=== PATIENT | female | born 1970 | race Caucasian/White ===

== ENCOUNTER 2016-09-14 06:09 | Inpatient (IN) ==
[2016-09-14] MEDS ORDERED: Albuterol 2.5 MG/3 ML NEBULIZER IH ONE (06:48)
--- NOTE | 2016-09-14 07:00 | Anesthesia Evaluation PreOp ---
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 Any Significant HX Other Medical History: Other (Obese, Uterine and Colon cancer with metastasis to lung) Anesthesia History: No Prior Anesthetic Complications (Multiple surgeries including T&A, Maria E, ALVARO, CTR, Colectomy, Meniscus repair, and Ulnar nerve transposition.), Past Anesthesia : No Alcohol Use: none Drug use: none Medications and Allergies Albuterol Sulfate [Albuterol Inhaler] 2 puff IH Q4H PRN 06/08/16 [History] Oxycodone HCl/Acetaminophen [Percocet 10-325 mg Tablet] 1 each PO Q6H PRN #90 tablet 08/20/16 [Rx] Allergies codeine Allergy (Verified 08/16/16 10:32) Anaphylaxis STATES TO TAKE THAT OFF LIST SHE CAN TAKE THAT ibuprofen Allergy (Verified 08/16/16 10:32) Anaphylaxis Penicillins Allergy (Verified 08/16/16 10:32) Anaphylaxis tramadol Allergy (Verified 08/16/16 10:32) Anaphylaxis metronidazole [From Flagyl] Adverse Reaction (Verified 08/16/16 10:32) Vomiting - Meds/Allergy Pre-op Review Medications Reviewed: Yes Allergies Reviewed: Yes (Patitent does not report anaphylaxsis to PCN, gets sick ) Anesthesia Results - Labs Laboratory Tests 09/13/16 09/13/16 17:56 17:56 Hgb 14.2 Hct 42.8 Plt Count 181 Sodium 143 Potassium 4.4 BUN 10 Creatinine 0.81 - Imaging EKG: report reviewed Chest x-ray: report reviewed Anesthesia Exam Selected Entries 09/14/16 06:43 Temperature 98.2 F Pulse Rate 78 Respiratory Rate 18 Blood Pressure 127/78 O2 Sat by Pulse Oximetry 99 Height: 64in Weight: 297lbs NPO (# of Hours): 8 Pain Scale: 0 Pain Scale Used: Numeric (1 - 10) - HEENT Pupil (Motor): EOMI Mallampati: IV Teeth: Normal Oral Opening: Less than or equal to 3 - 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 No epidural due to size. Questions answered and agrees to proceed.)
[2016-09-14] MEDS ORDERED: CeFAZolin Pre 2,000 MG/100 ML 2,000 MG/100 ML BAG IVPB ONE (07:01)
[2016-09-14] MEDS ORDERED: Dexamethasone 4 MG/ML VIAL ONE (07:23)
[2016-09-14] MEDS ORDERED: *HR* Phenylephrine 10 MG/ML VIAL ONE (07:23)
[2016-09-14] MEDS ORDERED: Ondansetron 4 MG/2 ML VIAL ONE (07:23)
[2016-09-14] MEDS ORDERED: *HR* Rocuronium Bromide 50 MG/5 ML VIAL ONE ×2 (07:23→08:44)
[2016-09-14] MEDS ORDERED: *HR* FentaNYL (PF) 250 MCG/5 ML VIAL ONE (07:24)
[2016-09-14] MEDS ORDERED: *HR* Midazolam HCl 5 MG/5 ML VIAL IVP ONE (07:25)
[2016-09-14] MEDS ORDERED: *HR* Propofol 200 MG/20 ML VIAL IVP ONE (07:25)
--- NOTE | 2016-09-14 07:25 | History & Physical Report ---
Date of Encounter: 09/14/16 Time of Encounter: 07:24 24 Hour HP Update - Instructions Instructions: If the History and Physical is less than 30 days old and was completed prior to A.M. admission and or procedure and has NOT been updated on calendar day of procedure please complete this update prior to performing procedure. - Update Patient reports changes in Medical Condition: No Changes in assessment/condition: No Changes in Medication: No Preop tests/diagnostics Reviewed: Yes Pre-Op MRSA Screen: Negative Surgery Remains Indicated: Yes Consent for Planned Operative Procedure(s) Verified: Yes - Pre-Operative Checklist Preoperative Checklist Indicated: Yes Prophylactic Antibiotic Ordered: Yes Home Medications Include Beta Mina: No Beta Mina Taken Today (Day of Surgery): No Beta Mina Taken Yesterday (Day Prior to Surgery): No Is VTE Prophylaxis Indicated?: Yes
[2016-09-14] MEDS ORDERED: Heparin 1,000 UNITS/500 mL NS 500 ML ONE (07:36)
[2016-09-14] MEDS ORDERED: CeFAZolin Pre 3,000 MG/100 ML 3,000 MG/100 ML BAG IVPB ONE (07:39)
[2016-09-14] MEDS: Ringers Solution, Lactated 1,000 ML IVC SCH ×2 (07:55→09:31)
[2016-09-14] MEDS ORDERED: *HR* Metoprolol 5 MG/5 ML VIAL IVP ONE (08:36)
[2016-09-14] MEDS ORDERED: *HR* Morphine 10 MG/ML VIAL ONE (08:40)
--- NOTE | 2016-09-14 10:22 | Operative Note ---
Date of procedure: 09/14/16 Procedure in Detail: Preoperative diagnosis. Metastatic uterine cancer to the right lower lobe of the lung. Postoperative diagnosis. Same. Procedure. Right posterolateral thoracotomy with right lower lobectomy. Surgeon. Dr. Larry Nova. Asst. Winston Akins. Anesthesia. Dr. Chip Bryan. Patient is a young white female who has a history of uterine cancer and colon cancer. She presented with a lung mass in her right lower lobe. Needle biopsy was consistent with metastatic uterine cancer and she was referred for surgery. She states that she has taken Keflex before without difficulty and was given preoperative Ancef without difficulty. She underwent general anesthetic and was prepped and draped in standard fashion. A standard right posterolateral thoracotomy was performed. Serratus anterior and latissimus dorsi muscles were divided with the Bovie electrocoagulation. The fifth intercostal space was selected and intercostal musculature was bovied off the top of the sixth rib. The lung was deflated and the pleural space was entered. The patient had a palpable mass in her right lower lobe that was too central and large for a wedge resection. Dissection went down into the fissure. The pulmonary artery branch to the right lower lobe was isolated. Approximately was ligated with a 0 silk suture and a large metal clip. Distally it was tied off the no silk suture. It was then divided. The inferior pulmonary ligament was dissected. The inferior pulmonary vein was encircled. Distally it was tied off with an 0 silk suture and 0 silk suture ligature. Approximately it was ligated with a TA-30 vascular stapler. It was then divided. The remaining fissure and bronchus was divided using the TA 60 nonvascular stapler. The specimen was removed. The lesion was central and far from the bronchial margin. There were no palpable or obvious lymph nodes in the mediastinum to be biopsied and this was a metastatic lesion. In addition, the mediastinum was negative on PET scan. The lung was reinflated with saline in the chest and no significant air leaks were present. Intercostal blocks were taken with a total of 30 mL of Marcaine without epinephrine for 2 or 3 interspaces above and below the incision. 2 chest tubes were left. A 36 straight to the apex of the chest. A 32 angle along the diaphragm. Intercostal sews were made with #1 Vicryl in [id number] fashion. Serratus anterior and latissimus dorsi muscles were sewn with a #1 Vicryl. Subcutaneous tissues was closed with a 2-0 Vicryl. Skin was closed with a 3-0 Vicryl subcuticular stitch. The patient tolerated the procedure well and was returned intensive care unit in satisfactory and stable condition.
[2016-09-14] MEDS ORDERED: Naloxone 0.4 MG/ML INJ IVP PRN (10:26)
[2016-09-14] MEDS ORDERED: D5% in Water 1,000 ML IV PRN (10:26)
[2016-09-14] MEDS ORDERED: *HR* Dextrose 50 % in Water (Syg) 50 ML SYRINGE IVP PRN (10:26)
[2016-09-14] MEDS ORDERED: *HR* LORazepam 2 MG/ML VIAL IVP PRN (10:26)
[2016-09-14] MEDS ORDERED: Dextrose Gel 15 GM PO PRN ×2 (10:26)
[2016-09-14 10:47] LABS: Basophils % 0.2 %; Eosinophils # 0.1 K/mcL (0.0-0.6); Eosinophils % 0.5 %; Hematocrit 37.8 % (35.3-44.9); Hemoglobin 12.4 g/dL (11.5-15.4); Immature Granulocytes % 0.9 % (0-4); Lymphocytes # 1.7 K/mcL (0.6-4.6); Lymphocytes % 9.6 %; Mean Corpuscular HGB Conc 32.8 g/dL (31.6-35.5); Mean Corpuscular Hemoglobin 27.9 pg (28.0-33.3); Mean Corpuscular Volume 85.1 fL (83.0-100.0); Mean Platelet Volume 8.6 fL (9.4-12.4); Monocytes # 0.6 K/mcL (0.0-1.3); Monocytes % 3.5 %; Neutrophils # 15.4 K/mcL (1.6-8.9); Platelet Count 210 K/mcL (140-400); Red Blood Count 4.44 M/mcL (3.82-4.97); Red Cell Distribution Width 13.4 % (11.5-14.5); Segmented Neutrophils % 85.3 %
[2016-09-14 10:48] LABS: ABG Base Excess -1.1 mEq/L (-2.0 to 3.0); ABG HCO3 25.3 mEQ/L (21-27); ABG Oxygen Saturation 94 % (95-98); ABG PCO2 48 mmHg (35-45); ABG PH 7.33 pH Units (7.32-7.45); ABG PO2 76 mmHg (85-104); ABG TCO2 26.8 mEq/L (20-26)
[2016-09-14 10:49] LABS: Blood Gas FiO2 40 %
[2016-09-14] MEDS: Ketorolac 15 MG/ML VIAL IVP SCH ×3 (10:55→23:36)
[2016-09-14] MEDS: 0.9 % Sodium Chloride 1,000 ML IVC SCH ×3 (10:55→19:21)
[2016-09-14] MEDS: Insulin LISPRO 300 UNITS/3 ML VIAL SQ SCH ×2 (10:55→16:44)
[2016-09-14] MEDS ORDERED: *HR* HYDROmorphone 20 MG/20 ML PCA IVC PRN (10:57)
[2016-09-14] MEDS: *HR* OxyCODONE/APAP 10/325 TABLET PO PRN (11:07)
--- NOTE | 2016-09-14 11:33 | Anesthesia Evaluation Post Op ---
Date of Encounter: 09/14/16 Time of Encounter: 11:30 - Vital Signs Vital Signs: Selected Entries 09/14/16 11:11 Pulse Rate 51 Respiratory Rate 18 Blood Pressure 142/54 O2 Sat by Pulse Oximetry 96 Oxygen Flow Rate (LPM) 5 - Lungs Lungs: Clear Ascult./Percussion - Airway Airway: Non-obstructed - Cardiovascular Regular Rate - Mental Status Mental Status: Alert & Oriented, Answers Appropriately - Pain Pain Scale: 6 Pain Scale used: Numeric (1 - 10) - Nausea Vomiting Nausea Vomiting: Not Present - Hydration Hydration: Ice chips, Coleman catheter (Will remain in ICU tonight. No post anesthesia issues.)
[2016-09-14] MEDS: Albuterol 2.5 MG/3 ML NEBULIZER IH SCH ×4 (11:58→23:29)
[2016-09-14 14:52] LABS: BUN/Creatinine Ratio 14 (6-26); Blood Urea Nitrogen 10 mg/dL (7-20); Calcium 8.5 mg/dL (8.6-10.8); Carbon Dioxide 25 mEq/L (19-29); Chloride 109 mEq/L (98-109); Glucose 140 mg/dL (70-99); Osmolality,Calculated 289 (280-300); Potassium 4.1 mEq/L (3.5-4.5); Sodium 139 mEq/L (136-145); eGFR For African Americans > 60 (> 60); eGFR For Non-African Americans > 60 (> 60)
[2016-09-14] MEDS: ceFAZolin 2,000 MG in D5% in Water 100 ML IVPB SCH (16:25)
[2016-09-14] MEDS ORDERED: Insulin LISPRO 300 UNITS/3 ML VIAL SQ SCH (21:00)
[2016-09-15] MEDS: ceFAZolin 2,000 MG in D5% in Water 100 ML IVPB SCH (00:34)
[2016-09-15] MEDS: Albuterol 2.5 MG/3 ML NEBULIZER IH SCH ×6 (03:17→23:42)
[2016-09-15] MEDS: 0.9 % Sodium Chloride 1,000 ML IVC SCH ×2 (03:51→10:34)
[2016-09-15] MEDS: *HR* OxyCODONE/APAP 10/325 TABLET PO PRN ×4 (04:03→23:05)
[2016-09-15 04:52] LABS: Basophils % 0.1 %; Hematocrit 36.5 % (35.3-44.9); Hemoglobin 11.8 g/dL (11.5-15.4); Immature Granulocytes % 0.5 % (0-4); Lymphocytes # 1.4 K/mcL (0.6-4.6); Lymphocytes % 9.3 %; Mean Corpuscular HGB Conc 32.3 g/dL (31.6-35.5); Mean Corpuscular Hemoglobin 27.8 pg (28.0-33.3); Mean Corpuscular Volume 86.1 fL (83.0-100.0); Monocytes # 1.3 K/mcL (0.0-1.3); Monocytes % 8.8 %; Neutrophils # 12.2 K/mcL (1.6-8.9); Platelet Count 193 K/mcL (140-400); Red Blood Count 4.24 M/mcL (3.82-4.97); Red Cell Distribution Width 13.5 % (11.5-14.5); Segmented Neutrophils % 81.3 %
[2016-09-15 04:58] LABS: ABG Base Excess 0.2 mEq/L (-2.0 to 3.0); ABG Oxygen Saturation 93 % (95-98); ABG PCO2 46 mmHg (35-45); ABG PH 7.36 pH Units (7.32-7.45); ABG PO2 70 mmHg (85-104); ABG TCO2 27.4 mEq/L (20-26); Blood Gas FiO2 24 %
[2016-09-15 05:10] LABS: BUN/Creatinine Ratio 18 (6-26); Blood Urea Nitrogen 14 mg/dL (7-20); Calcium 8.5 mg/dL (8.6-10.8); Carbon Dioxide 22 mEq/L (19-29); Chloride 108 mEq/L (98-109); Glucose 130 mg/dL (70-99); Osmolality,Calculated 288 (280-300); Potassium 4.4 mEq/L (3.5-4.5); Sodium 138 mEq/L (136-145); eGFR For African Americans > 60 (> 60); eGFR For Non-African Americans > 60 (> 60)
[2016-09-15] MEDS: Ketorolac 15 MG/ML VIAL IVP SCH ×4 (06:03→20:48)
--- NOTE | 2016-09-15 08:33 | Cardiothoracic Progress Note ---
Date of Encounter: 09/15/16 Time of Encounter: 08:31 - Assessment and plan (1) Solitary lung nodule Current Visit: No Status: Acute The assessment and plan as outlined above was discussed with the patient and/or family members who expressed understanding and agreement. All questions were answered. The patient is doing well. We will transfer her to the floor. We will discontinue her Coleman catheter and arterial line. - Subjective Interval history: The patient has no complaints. She is starting her diet. Vital Signs, Last 4 Hours Temp Pulse Resp BP Pulse Ox 09/15/16 08:06 103 18 147/73 97 09/15/16 07:57 18 97 09/15/16 07:52 97.9 F 09/15/16 06:00 87 18 101/79 92 L 09/15/16 05:00 85 16 99/77 94 L Oxgyen Flow Rate Oxygen Flow Rate (LPM) 3 Clinical Data, last 8 Hours Output, Chest Tube Drainage 8 Amount [Right Mid-Axillary Chest #2] Output, Chest Tube Drainage 30 Amount [Right Mid-Axillary Chest #1] Weight 09/13/16 09/14/16 09/15/16 23:59 23:59 23:59 Weight 134.263 kg 136.134 kg Lungs are clear to percussion and auscultation. Heart is in a normal sinus rhythm. Her incision is healing well without signs of infection. Chest x-ray reveals no pneumothorax. Chest tube drainage is minimal and there is no air leak. - Labs 09/15/16 04:40 09/15/16 04:40 Lab Results, Last 24 hours 09/14/16 09/14/16 09/15/16 01:40 10:26 04:40 WBC 18.1 H D 15.0 H Hgb 12.4 D 11.8 Hct 37.8 36.5 Plt Count 210 193 Sodium 139 Potassium 4.1 Chloride 109 Carbon Dioxide 25 BUN 10 Creatinine 0.71 Glucose 140 H Calcium 8.5 L 09/15/16 04:40 WBC Hgb Hct Plt Count Sodium 138 Potassium 4.4 Chloride 108 Carbon Dioxide 22 BUN 14 Creatinine 0.78 Glucose 130 H Calcium 8.5 L - VTE Documentation of Mechanical Device: Intermittent pneumatic compression device Consult Discharge Plan - Plan Referrals: Karen Zuluaga MD [Primary Care Provider] -
[2016-09-15] MEDS ORDERED: Furosemide 20 MG/2 ML VIAL IVP ONE (08:35)
[2016-09-15] MEDS: Insulin LISPRO 300 UNITS/3 ML VIAL SQ SCH ×4 (10:34→21:05)
[2016-09-15] MEDS ORDERED: D5% in Water 1,000 ML IV PRN (10:51)
[2016-09-15] MEDS ORDERED: *HR* Dextrose 50 % in Water (Syg) 50 ML SYRINGE IVP PRN (10:51)
[2016-09-15] MEDS ORDERED: *HR* HYDROmorphone 20 MG/20 ML PCA IVC PRN (10:51)
[2016-09-15] MEDS ORDERED: Naloxone 0.4 MG/ML INJ IVP PRN (10:51)
[2016-09-15] MEDS ORDERED: Dextrose Gel 15 GM PO PRN ×2 (10:51)
[2016-09-15] MEDS ORDERED: *HR* LORazepam 2 MG/ML VIAL IVP PRN (10:51)
[2016-09-16] MEDS: 0.9 % Sodium Chloride 1,000 ML IVC SCH ×2 (00:39→08:40)
[2016-09-16] MEDS: Ketorolac 15 MG/ML VIAL IVP SCH ×3 (00:46→12:00)
[2016-09-16] MEDS: Albuterol 2.5 MG/3 ML NEBULIZER IH SCH ×5 (03:45→20:50)
[2016-09-16 04:48] LABS: Basophils % 0.4 %; Eosinophils # 0.3 K/mcL (0.0-0.6); Eosinophils % 2.2 %; Hematocrit 34.8 % (35.3-44.9); Hemoglobin 11.1 g/dL (11.5-15.4); Immature Granulocytes % 0.6 % (0-4); Lymphocytes # 2.4 K/mcL (0.6-4.6); Lymphocytes % 21.8 %; Mean Corpuscular HGB Conc 31.9 g/dL (31.6-35.5); Mean Corpuscular Hemoglobin 27.7 pg (28.0-33.3); Mean Corpuscular Volume 86.8 fL (83.0-100.0); Mean Platelet Volume 8.8 fL (9.4-12.4); Monocytes # 0.9 K/mcL (0.0-1.3); Monocytes % 8.4 %; Neutrophils # 7.5 K/mcL (1.6-8.9); Platelet Count 179 K/mcL (140-400); Red Blood Count 4.01 M/mcL (3.82-4.97); Red Cell Distribution Width 13.6 % (11.5-14.5); Segmented Neutrophils % 66.6 %
[2016-09-16 05:04] LABS: BUN/Creatinine Ratio 16 (6-26); Blood Urea Nitrogen 12 mg/dL (7-20); Calcium 8.6 mg/dL (8.6-10.8); Carbon Dioxide 21 mEq/L (19-29); Chloride 107 mEq/L (98-109); Glucose 96 mg/dL (70-99); Osmolality,Calculated 282 (280-300); Sodium 136 mEq/L (136-145); eGFR For African Americans > 60 (> 60); eGFR For Non-African Americans > 60 (> 60)
[2016-09-16] MEDS: Insulin LISPRO 300 UNITS/3 ML VIAL SQ SCH ×4 (08:39→21:22)
--- NOTE | 2016-09-16 09:04 | Cardiothoracic Progress Note ---
Date of Encounter: 09/16/16 Time of Encounter: 09:05 - Assessment and plan (1) Solitary lung nodule Current Visit: No Status: Acute I took her chest tubes off suction. We will discontinue her BEAM SEALER pump and place her on intermittent IV narcotics. - Subjective Interval history: The patient prefers to discontinue her BEAM SEALER pump and go on intermittent IV narcotics. Vital Signs, Last 4 Hours Temp Pulse Resp BP Pulse Ox 09/16/16 08:12 17 96 09/16/16 07:44 97.9 F 100 18 99/68 95 09/16/16 07:22 98.2 F 102 18 99/68 95 09/16/16 06:00 106 18 108/53 100 Oxgyen Flow Rate Oxygen Flow Rate (LPM) 2 Clinical Data, last 8 Hours Output, Chest Tube Drainage 10 Amount [Right Mid-Axillary Chest #2] Output, Chest Tube Drainage 70 Amount [Right Mid-Axillary Chest #1] Output, Urine Amount 750 Weight 09/14/16 09/15/16 09/16/16 23:59 23:59 23:59 Weight 134.263 kg 136.134 kg 140.9 kg Lungs are clear to percussion and auscultation. Heart is in a normal sinus rhythm. Her incision is healing well without signs of infection. Chest tube drainage is minimal and there is no air leak - Labs 09/16/16 04:24 09/16/16 04:24 Lab Results, Last 24 hours 09/16/16 09/16/16 04:24 04:24 WBC 11.2 H Hgb 11.1 L Hct 34.8 L Plt Count 179 Sodium 136 Potassium 4.0 Chloride 107 Carbon Dioxide 21 BUN 12 Creatinine 0.73 Glucose 96 Calcium 8.6 - VTE Documentation of Mechanical Device: Intermittent pneumatic compression device Consult Discharge Plan - Plan Referrals: Karen Zuluaga MD [Primary Care Provider] -
[2016-09-16] MEDS: *HR* OxyCODONE/APAP 10/325 TABLET PO PRN ×2 (11:16→18:46)
[2016-09-16] MEDS: *HR* HYDROmorphone 2 MG/ML SYRINGE IVP PRN ×3 (14:55→21:25)
[2016-09-17] MEDS: Albuterol 2.5 MG/3 ML NEBULIZER IH SCH ×7 (00:44→23:06)
[2016-09-17] MEDS: *HR* OxyCODONE/APAP 10/325 TABLET PO PRN ×3 (00:59→20:15)
[2016-09-17] MEDS: *HR* HYDROmorphone 2 MG/ML SYRINGE IVP PRN ×5 (04:54→21:28)
[2016-09-17] MEDS: Insulin LISPRO 300 UNITS/3 ML VIAL SQ SCH ×4 (07:54→21:28)
--- NOTE | 2016-09-17 09:20 | Cardiothoracic Progress Note ---
Date of Encounter: 09/17/16 Time of Encounter: 09:18 - Assessment and plan (1) Solitary lung nodule Current Visit: No Status: Acute I will check a chest x-ray tomorrow morning. If this is okay, I will discontinue the chest tubes tomorrow. - Subjective Interval history: The patient has no complaints. She is tolerating her diet and having bowel movements. Vital Signs, Last 4 Hours Temp Pulse Resp BP Pulse Ox 09/17/16 08:15 18 99 09/17/16 07:44 106 09/17/16 07:03 98.2 F 98 18 132/84 99 09/17/16 06:39 95 20 94 L Oxgyen Flow Rate Oxygen Flow Rate (LPM) 2 Clinical Data, last 8 Hours Output, Chest Tube Drainage 70 Amount [Right Mid-Axillary Chest #2] Output, Chest Tube Drainage 60 Amount [Right Mid-Axillary Chest #1] Output, Urine Amount 550 Weight 09/15/16 09/16/16 09/17/16 23:59 23:59 23:59 Weight 136.134 kg 140.9 kg 140.9 kg Lungs are clear to percussion and auscultation. Heart is in a normal sinus rhythm. Chest tubes had minimal drainage and no air leak. Chest x-ray off suction reveals no pneumothorax. - Labs 09/16/16 04:24 09/16/16 04:24 - VTE Documentation of Mechanical Device: Intermittent pneumatic compression device Consult Discharge Plan - Plan Referrals: Kinza Love CNP [Advanced Practice Nurse] - 09/25/16 2:30 pm (PLEASE CANCEL WITH IN 24 HOURS OF YOUR APPOINTMENT IF NOT ABLE TO MAKE IT AT [phone]. THANKS) Karen Zuluaga MD [Primary Care Provider] -
[2016-09-18] MEDS: *HR* HYDROmorphone 2 MG/ML SYRINGE IVP PRN ×3 (00:26→08:07)
[2016-09-18] MEDS: *HR* OxyCODONE/APAP 10/325 TABLET PO PRN ×5 (04:51→22:44)
[2016-09-18] MEDS: Albuterol 2.5 MG/3 ML NEBULIZER IH SCH ×5 (05:29→20:49)
[2016-09-18] MEDS: Insulin LISPRO 300 UNITS/3 ML VIAL SQ SCH ×4 (07:16→22:42)
--- NOTE | 2016-09-18 09:27 | Cardiothoracic Progress Note ---
Date of Encounter: 09/18/16 Time of Encounter: 09:26 - Assessment and plan (1) Solitary lung nodule Current Visit: No Status: Acute The chest tubes were removed. We will check a stat portable chest x-ray. Hopefully, the patient can be discharged in 1-2 days. - Subjective Interval history: The patient has no complaints. Vital Signs, Last 4 Hours Temp Pulse Resp BP Pulse Ox 09/18/16 08:23 91 09/18/16 08:05 16 96 09/18/16 07:09 97.9 F 100 18 129/98 96 Oxgyen Flow Rate Oxygen Flow Rate (LPM) 2 Clinical Data, last 8 Hours Output, Chest Tube Drainage 0 Amount [Right Mid-Axillary Chest #2] Output, Chest Tube Drainage 20 Amount [Right Mid-Axillary Chest #2] Output, Chest Tube Drainage 0 Amount [Right Mid-Axillary Chest #1] Output, Chest Tube Drainage 60 Amount [Right Mid-Axillary Chest #1] Output, Urine Amount 550 Weight 09/16/16 09/17/16 09/18/16 23:59 23:59 23:59 Weight 140.9 kg 140.9 kg 139.8 kg Lungs are clear to percussion and auscultation. Heart is in a normal sinus rhythm. Her incision is healing well without signs of infection. Chest tube drainage is minimal and there is no air leak. Chest x-ray done off suction reveals no pneumothorax. - Labs 09/16/16 04:24 09/16/16 04:24 - VTE Documentation of Mechanical Device: Intermittent pneumatic compression device Consult Discharge Plan - Plan Referrals: Kinza Lvoe CNP [Primary Care Provider] - 09/25/16 2:30 pm (PLEASE CANCEL WITH IN 24 HOURS OF YOUR APPOINTMENT IF NOT ABLE TO MAKE IT AT [phone]. THANKS) Karen Zuluaga MD [Partnered Physician] - Larry Nova MD [Partnered Physician] - 10/18/16 1:15 pm
[2016-09-19] MEDS: Albuterol 2.5 MG/3 ML NEBULIZER IH SCH ×2 (00:11→04:30)
[2016-09-19] MEDS: *HR* OxyCODONE/APAP 10/325 TABLET PO PRN ×2 (04:42→08:28)
[2016-09-19 08:04] VITALS: BP 146/83
[2016-09-19] MEDS: Insulin LISPRO 300 UNITS/3 ML VIAL SQ SCH (08:27)
--- NOTE | 2016-09-19 09:35 | Discharge Summary ---
Date of Encounter: 09/19/16 Time of Encounter: 09:34 - Discharge Diagnosis (1) Solitary lung nodule Priority: Primary Status: Acute - Discharge Medications Prescriptions: Oxycodone HCl/Acetaminophen [Percocet 10-325 mg Tablet] 1 each PO Q6H PRN #60 tablet PRN Reason: Pain Home Medications: Oxycodone HCl/Acetaminophen [Percocet 10-325 mg Tablet] 1 each PO Q6H PRN #60 tablet 09/19/16 [Rx] Allergies/Adverse Reactions: Allergies codeine Allergy (Verified 09/14/16 07:40) Anaphylaxis STATES TO TAKE THAT OFF LIST SHE CAN TAKE THAT ibuprofen Allergy (Verified 09/14/16 07:40) Anaphylaxis Penicillins Allergy (Verified 09/14/16 07:40) Anaphylaxis tramadol Allergy (Verified 09/14/16 07:40) Anaphylaxis metronidazole [From Flagyl] Adverse Reaction (Verified 09/14/16 07:40) Vomiting Date of admission: 09/14/16 09:34 Primary care physician: Kinza Love CNP Consults: 09/14/16 10:26 Consult to Client Services Coordinator [CONS] Routine Reason for SW Consult: cancer Procedure(s) Performed: September 14, 2016. Right posterolateral thoracotomy with right lower lobectomy Discharging clinician: Larry Nova Anticipated date of discharge: 09/19/16 - Patient Status Disposition: Home, Self-Care Condition: Fair Functional capacity at discharge: independent ambulation Overall status at discharge: patient is progressing back to baseline - Discharge Instructions Follow Up With: Kinza Love CNP [Primary Care Provider] - 09/25/16 2:30 pm (PLEASE CANCEL WITH IN 24 HOURS OF YOUR APPOINTMENT IF NOT ABLE TO MAKE IT AT [phone]. THANKS) Karen Zuluaga MD [Partnered Physician] - 09/28/16 11:10 am Larry Nova MD [Partnered Physician] - 10/18/16 1:15 pm - Hospital Course Hospital course: Ms. Tim is a 46 year old female The patient is a 46-year-old female who has a history of uterine cancer and colon cancer. She presented with a right lower lobe lung mass. Needle biopsy was consistent with metastatic uterine cancer. Preoperative PET scan revealed no other metastases. On September 14, 2016, I took her to the operating room for right posterolateral thoracotomy with right lower lobectomy. Pathology returned positive for metastatic uterine cancer. I was unable to do a wedge resection because of the large size of the tumor. The patient tolerated the procedure well and was placed in the ICU. On September 15, she was transferred to the floor. On September 16, the chest tubes were taken off suction. Chest x-ray off suction revealed no pneumothorax. The chest tubes had no air leak and minimal drainage. On September 18, the chest tubes were removed. 2 chest x-rays done after this revealed no pneumothorax. There was some Byam loss from her lobectomy. The patient otherwise did well and was discharged on September 19. At that time she was afebrile. Lungs were clear to percussion and auscultation. Heart was in a normal sinus rhythm. Her incision was healing well without signs of infection. Medications are on the viseto rec. The only new medication is Percocet 10/325 for pain. She had been on this preoperatively. I did check the [place] automated Rx reporting system. She was postoperative. I did give her 60 as she had been taking it preoperatively. The patient was to return to her previous and regular diet. She was to avoid driving for 1 month. She was to walk as much as possible. She was to avoid heavy lifting for a total of 3 months after surgery. I will see the patient back in the office in 4 weeks for a check. She is to follow up with her primary care doctor and oncologist as directed. Appropriate narcotic precautions were given. - Time Spent with Patient Total time spent providing and/or coordinating discharge services: Physical Examination Vital Signs, Last 4 Hours Temp Pulse Resp BP Pulse Ox 09/19/16 08:54 104 09/19/16 08:00 97.9 F 85 16 146/83 99 - VTE Documentation of Mechanical Device: Intermittent pneumatic compression device
== END 2016-09-19 10:50 | disposition home or self-care (01) | DRG 121 ==
LOC: SAMDAY 06:09 → ICNU 09:34 → 2NNU 09-15 12:47
PROVIDERS: ADMIT Thoracic Surgery (Cardiothoracic Vascular Surgery); ATTEND Thoracic Surgery (Cardiothoracic Vascular Surgery)

== ENCOUNTER 2016-10-14 02:57 | Observation (INO) ==
[2016-10-14] MEDS ORDERED: Ondansetron 4 MG/2 ML VIAL IVP PRN (05:07)
[2016-10-14] MEDS ORDERED: Acetaminophen 325 MG TABLET PO PRN (05:07)
[2016-10-14] MEDS ORDERED: Naloxone 0.4 MG/ML INJ IVP PRN (05:07)
[2016-10-14] MEDS ORDERED: Albuterol 2.5 MG/3 ML NEBULIZER IH PRN (05:12)
[2016-10-14] MEDS ORDERED: Loratadine/Pseudophed (12 HR) 1 EACH TABLET PO PRN (05:15)
[2016-10-14] MEDS ORDERED: 0.9 % Sodium Chloride 1,000 ML IVC SCH (05:15)
--- NOTE | 2016-10-14 05:28 | Internal Med History&Physical ---
Date of Encounter: 10/14/16 Time of Encounter: 05:18 Assessment and Plan (1) Pneumonia Current visit: No Status: Acute 1. CTA not definitive for pneumonia; however, history and exam suggest pneumonia. 2. Will treat with Vancomycn and Levaquin to cover HCAP organisms. 3. Follow sputum and blood cultures. 4. Will check Influenza PCR. 5. Consult thoracic surgery to evaluate for any post-op concerns. 6. Oxygen and aerosols PRN. 7. Note: blood culture from 10/12/16 is growing G+ cocci from [facility]. This needs to be followed. Qualifiers: Pneumonia type: due to unspecified organism Laterality: right Lung location: lower lobe of lung Qualified Code(s): J18.1 - Lobar pneumonia, unspecified organism (2) Uterine cancer Current visit: Yes Status: Chronic 1. S/P ALVARO/BSO. 2. Pt follows with Dr. Zuluaga and [facility]. Qualifiers: Malignant neoplasm of uterus location: unspecified site of uterus Qualified Code(s): C55 - Malignant neoplasm of uterus, part unspecified (3) Cancer of sigmoid colon Current visit: No Status: Chronic 1. Pt. follows with Dr. Zuluaga. (4) DVT prophylaxis Current visit: No Status: Acute 1. Heparin SQ. Internal Medicine - H&P: HPI Chief complaint: fever, cough, SOB Admitted From: Hospital to Hospital Transfer Plans for Post Hospital Care: Home History of present illness: Ms. Tim is a 46 year old female who presents in transfer from [facility] emergency department. She was in the ER yesterday and today with complaints of fever, cough, congestion, and shortness of breath. It was recommended that she be admitted yesterday, but she did not want to stay at [facility] so she left AMA yesterday. She returned tonight and it was again recommended that she be admitted. She agreed to be admitted, but she requested transfer to [place]. I was contacted by ER staff at [facility] ER and accepted the patient transfer. However, prior to transfer, I requested that she have a CT angiogram of her chest to rule out PE given her cancer history and recent lung surgery. CT scan was negative for PE and she was transferred here. Upon my assessment of the patient, she is resting comfortably now. She does give a history of cough, congestion, fevers, chills, and shortness of breath. Symptoms started about 4 days ago and have progressively worsened. She denies any vomiting or diarrhea, but she has had nausea. She denies any body aches or muscle aches. She denies any headaches. She denies any influenza exposure, but she has been exposed to her uncle who has had a viral head cold. Of note, patient had right lower lobe lobectomy of her right lung last month to resect a metastatic lesion from her former uterine cancer. Her wound appears to be healing well, and she has followed up with her thoracic surgeon. Additionally, she follows with oncology here at [place]. Past Med Surg Social Fam HX - Past Medical History Attestation: Yes The following information was validated with the patient. Source: patient, old records reviewed Medical history: asthma, cancer (colon; uterine), other Psychiatric history: no psych history - Past Surgical History Surgical History: cholecystectomy, ALVARO/BSO, other (right lower lobectomy) - Social History Smoking Status: Never smoker Smokeless Tobacco Status: No Alcohol use: none Drug use: none Current living situation: Home, With Family Activity Level: Independent ambulation Recent Out of Country Travel Within the Last 8 Weeks: No - Family History Mother Living Status: Still Living Hx Family Respiratory Disorders: Yes Father Living Status: Hx Family Cardiac Disorders: Yes Internal Medicine - H&P: Meds Oxycodone HCl/Acetaminophen [Percocet 10-325 mg Tablet] 1 each PO Q6H PRN #60 tablet 09/19/16 [Rx] Fexofenadine/Pseudoephedrine [Rashmi-D 24 Hour Tablet] 1 each PO DAILY #30 tab.er.24h 09/28/16 [Rx] Oxycodone HCl/Acetaminophen [Percocet 10-325 mg Tablet] 1 each PO Q6H PRN #120 tablet 09/28/16 [Rx] Ondansetron HCl [Zofran] 4 mg PO Q6H PRN #20 tablet 10/10/16 [Rx] Allergies codeine Allergy (Verified 09/14/16 07:40) Anaphylaxis STATES TO TAKE THAT OFF LIST SHE CAN TAKE THAT ibuprofen Allergy (Verified 09/14/16 07:40) Anaphylaxis Penicillins Allergy (Verified 09/14/16 07:40) Anaphylaxis tramadol Allergy (Verified 09/14/16 07:40) Anaphylaxis metronidazole [From Flagyl] Adverse Reaction (Verified 09/14/16 07:40) Vomiting - Constitutional Constitutional: chills, fever(s), no night sweats - EENT Eyes: no blurry vision, no change in vision Ears: no ear pain, no tinnitus Nose, mouth and throat: no nasal congestion, no sinus pressure, no sore throat - Cardiovascular Cardiovascular ROS IM: dyspnea, dyspnea on exertion, no edema, no lightheadedness, no palpitations, no syncope - Respiratory Respiratory: cough, dyspnea, dyspnea on exertion, wheezing, pain on inspiration , chest congestion, excessive phlegm production, change in phlegm color, no hemoptysis - Gastrointestinal Gastrointestinal: no abdominal pain, no diarrhea, no hematemesis, no hematochezia, no melena, no nausea, no vomiting - Genitourinary Genitourinary: no dysuria, no flank pain, no hematuria - Musculoskeletal Musculoskeletal ROS IM: muscle cramps, no arthralgias, no back pain, no muscle weakness, no myalgias - Integumentary Integumentary IM: no rash, no jaundice - Neurological Neurological ROS: no dizziness, no focal weakness, no frequent falls, no headache(s) - Psychiatric Psychiatric: no anxiety, no depression - Endocrine Endocrine IM: no cold intolerance, no heat intolerance - Hematologic/Lymphatic Hematologic/Lymphatic: no easy bruising, no lymphadenopathy - Allergic/Immunologic Allergic/Immunologic: wheezing, no GI upset with certain foods - Constitutional Vitals: Temp Pulse Resp BP Pulse Ox 97.7 F 90 16 136/76 95 10/14/16 04:33 10/14/16 04:33 10/14/16 04:33 10/14/16 04:33 10/14/16 04:33 General appearance: Present: cooperative, mild distress, A&O X 3, pleasant, answers questions appropriately - Head Head exam: Present: atraumatic, normal inspection - Expanded Head Exam Head exam expanded: Absent: abrasion, contusion, general tenderness - Eye Eye exam: Present: EOMI, normal appearance, PERRL. Absent: scleral icterus Pupils: Present: normal accommodation - ENT ENT exam: Present: mucous membranes dry, normal exam, normal oropharynx - Neck Neck exam general surgery: Present: full ROM, supple. Absent: lymphadenopathy, nuchal rigidity, thyromegaly - Expanded Neck Exam Neck exam: Absent: carotid bruit - Respiratory Respiratory exam: Present: chest wall tenderness (posterior right lower -- near wound; wound appears to be well-healing without redness, warmth, or swelling), decreased breath sounds, rales (subtle RLLL), rhonchi. Absent: accessory muscle use, respiratory distress, wheezes - Cardiovascular Cardiovascular exam: Present: RRR, +S1, +S2, tachycardia (HR 100's). Absent: diastolic murmur, systolic murmur - GI/Abdominal GI/Abdominal exam: Present: normal bowel sounds, soft. Absent: hepatomegaly, mass, splenomegaly, tenderness - Extremities Exam Extremities exam: Present: full ROM, warm. Absent: calf tenderness, joint swelling, pedal edema - Back Exam Back exam: Present: normal inspection. Absent: CVA tenderness (L), CVA tenderness (R) - Neurological Exam Neurological exam: Present: alert, CN II-XII intact, oriented X3, no focal deficits - Psychiatric Psychiatric exam: Present: normal affect, normal mood - Skin Skin exam: Present: dry, warm. Absent: rash Internal Med - H&P Results - Labs Labs: I reviewed the labs from [facility]: WBC 14.2 Hgb 13.0 Hct 39.3 Plt 191 PT 12.8 INR 1.2 PTT 34.8 Sodium 138 Potassium 4.3 Chloride 105 CO2 21 BUN 14 Creatinine 0.75 - EKG Data -: EKG Interpreted by Myself EKG shows normal: sinus rhythm Rate: tachycardia - EKG Data EKG comments: 10/14/16 05:41 sinus tachycardia - Diagnostic Studies CT scan - chest Additional comments: report reviewed -- no PE; RML inflammation/scarring/possible infiltrate
[2016-10-14] MEDS: *HR* HYDROmorphone (PF) 1 MG/ML SYRINGE IVP PRN ×2 (05:36→22:06)
[2016-10-14] MEDS ORDERED: Vancomycin (wt based) 1,000 MG VIAL IVPB SCH (06:00)
[2016-10-14] MEDS: *HR* Heparin 5,000 UNIT/ML VIAL SQ SCH ×3 (06:12→22:06)
[2016-10-14] MEDS: Vancomycin 2,000 MG in D5% in Water 500 ML IVPB SCH ×2 (06:14→17:57)
[2016-10-14 07:10] LABS: 2009 H1N1 PCR NOT DETECTED (Not Detect); Influenza A PCR Negative (Negative); Influenza B PCR Negative (Negative)
[2016-10-14 07:30] LABS: Basophils # 0.1 K/mcL (0.0-0.2); Basophils % 0.5 %; Eosinophils # 0.3 K/mcL (0.0-0.6); Eosinophils % 3.1 %; Hematocrit 36.9 % (35.3-44.9); Hemoglobin 11.6 g/dL (11.5-15.4); Immature Granulocytes % 0.4 % (0-4); Lymphocytes # 1.8 K/mcL (0.6-4.6); Lymphocytes % 16.8 %; Mean Corpuscular HGB Conc 31.4 g/dL (31.6-35.5); Mean Corpuscular Hemoglobin 26.4 pg (28.0-33.3); Mean Corpuscular Volume 84.1 fL (83.0-100.0); Mean Platelet Volume 8.8 fL (9.4-12.4); Monocytes # 1.1 K/mcL (0.0-1.3); Monocytes % 9.8 %; Neutrophils # 7.5 K/mcL (1.6-8.9); Platelet Count 181 K/mcL (140-400); Red Blood Count 4.39 M/mcL (3.82-4.97); Red Cell Distribution Width 12.9 % (11.5-14.5); Segmented Neutrophils % 69.4 %
[2016-10-14 07:35] LABS: INR 1.3; Prothrombin Time 13.8 Seconds (9.4-12.1)
[2016-10-14 07:38] LABS: Activated Partial Thrombo Time 30.6 Seconds (26.0-36.0)
[2016-10-14 07:51] LABS: Alanine Aminotransferase 15 Units/L (0-55); Albumin 2.7 g/dL (3.5-5.0); Albumin/Globulin Ratio 0.8 (1.1-2.2); Alkaline Phosphatase 174 Units/L (38-126); Aspartate Amino Transferase 22 Units/L (5-34); BUN/Creatinine Ratio 16 (6-26); Bilirubin,Total 1.6 mg/dL (0.2-1.2); Blood Urea Nitrogen 11 mg/dL (7-20); Calcium 8.6 mg/dL (8.6-10.8); Carbon Dioxide 21 mEq/L (19-29); Chloride 105 mEq/L (98-109); Globulin 3.6 g/dL (2.4-3.5); Glucose 115 mg/dL (70-99); Magnesium 1.7 mg/dL (1.6-2.6); Osmolality,Calculated 280 (280-300); Potassium 3.8 mEq/L (3.5-4.5); Sodium 135 mEq/L (136-145); Total Protein 6.3 g/dL (6.0-8.3); eGFR For African Americans > 60 (> 60); eGFR For Non-African Americans > 60 (> 60)
[2016-10-14] MEDS: Levofloxacin 750 MG/150 ML 750 MG/150 ML BAG IVPB SCH (09:52)
[2016-10-14] MEDS: *HR* OxyCODONE/APAP 10/325 TABLET PO PRN ×2 (09:57→18:05)
--- NOTE | 2016-10-14 10:34 | Event Note ---
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 CT angiogram of chest showed no evidence of pulmonary abnormality or pulmonary embolism with postoperative changes from her recent right lower lobectomy. She was noted to have mild leukocytosis, that is currently improved. Patient is seen and examined at bedside. Reports occasional dry cough, no shortness of breath or fever/chills. No nausea or vomiting. Morbidly obese female, Awake, alert and oriented 3. Not in acute distress. Chest-S1, S2 heard. Lungs are clear to auscultation. Abdomen is soft and nontender, obese. Extremities show full range of motion, no pedal edema. CBC, BMP reviewed showed no acute abnormality. Influenza antigen negative. One out of 2 blood cultures in the emergency room grew gram-positive cocci. Repeat blood cultures pending. Right-sided chest pain-related to recent surgery and postoperative atelectasis. Continue pain control and incentive spirometry. Cough, leukocytosis- could be pneumonia although CT chest shows no evidence of acute infiltrates. Given her recent hospitalization, continue broad-spectrum IV antibiotics-Levaquin and vancomycin for now. Supplemental oxygen as needed. Initial blood cultures may be a contaminant, follow up repeat blood cultures. When necessary antitussives. Supportive care. We will follow up with CT surgery.
[2016-10-14] MEDS: Ipratropium/Albuterol Neb 3 ML IH SCH ×3 (10:48→21:50)
[2016-10-14] MEDS: 0.9 % Sodium Chloride 1,000 ML IVC SCH (10:57)
[2016-10-15] MEDS: 0.9 % Sodium Chloride 1,000 ML IVC SCH (02:12)
[2016-10-15] MEDS: Ipratropium/Albuterol Neb 3 ML IH SCH ×2 (03:57→09:16)
[2016-10-15] MEDS: *HR* OxyCODONE/APAP 10/325 TABLET PO PRN (04:21)
[2016-10-15] MEDS: Vancomycin 2,000 MG in D5% in Water 500 ML IVPB SCH (06:30)
[2016-10-15] MEDS: *HR* Heparin 5,000 UNIT/ML VIAL SQ SCH (06:31)
--- NOTE | 2016-10-15 07:41 | Cardiothoracic Progress Note ---
Date of Encounter: 10/15/16 Time of Encounter: 07:39 - Assessment and plan (1) Uterine cancer Current Visit: Yes Status: Chronic The assessment and plan as outlined above was discussed with the patient and/or family members who expressed understanding and agreement. All questions were answered. The patient is healing well. At this point, there are no signs of recurrent cancer. Qualifiers: Malignant neoplasm of uterus location: unspecified site of uterus Qualified Code(s): C55 - Malignant neoplasm of uterus, part unspecified - Subjective Interval history: The patient was admitted with low-grade fever and possible pneumonia. She is status post right lower lobectomy for metastatic uterine cancer. Vital Signs, Last 4 Hours Temp Pulse Resp BP Pulse Ox 10/15/16 04:18 98.9 F 88 17 137/91 98 Weight 10/13/16 10/14/16 10/15/16 23:59 23:59 23:59 Weight 135.4 kg 135.9 kg Lungs are clear to percussion and auscultation. Heart is in a regular rate and rhythm. Her incisions are healing well without signs of infection. - Labs 10/14/16 07:10 10/14/16 07:10 Lab Results, Last 24 hours 10/14/16 10/14/16 07:10 07:10 INR 1.3 APTT 30.6 Sodium 135 L Potassium 3.8 Chloride 105 Carbon Dioxide 21 BUN 11 Creatinine 0.69 Glucose 115 H Calcium 8.6 Magnesium 1.7 Total Bilirubin 1.6 H D AST 22 ALT 15 Alkaline Phosphatase 174 H Consult Discharge Plan - Plan Referrals: NO,PCP [Primary Care Provider] -
[2016-10-15 08:42] VITALS: BP 135/69
[2016-10-15] MEDS: Levofloxacin 750 MG/150 ML 750 MG/150 ML BAG IVPB SCH (08:53)
--- NOTE | 2016-10-15 09:48 | Discharge Summary ---
Date of Encounter: 10/15/16 Time of Encounter: 09:30 - Discharge Diagnosis (1) Pneumonia Priority: Primary Status: Ruled-out Qualifiers: Pneumonia type: due to unspecified organism Laterality: right Lung location: lower lobe of lung Qualified Code(s): J18.1 - Lobar pneumonia, unspecified organism (2) Uterine cancer Priority: Secondary Status: Chronic Qualifiers: Malignant neoplasm of uterus location: unspecified site of uterus Qualified Code(s): C55 - Malignant neoplasm of uterus, part unspecified (3) Cancer of sigmoid colon Priority: Secondary Status: Chronic - Discharge Medications Prescriptions: Doxycycline 100 mg PO BID #10 capsule Home Medications: Ondansetron HCl [Zofran] 4 mg PO Q6H PRN #20 tablet 10/10/16 [Rx] Albuterol Sulfate [Albuterol Inhaler] 1 - 2 puff IH Q6H PRN 10/14/16 [History] Fexofenadine HCl [Allergy Relief] 180 mg PO DAILY 10/14/16 [History] Omeprazole [PriLOSEC] 20 mg PO DAILY 10/14/16 [History] Oxycodone HCl/Acetaminophen [Percocet 10-325 mg Tablet] 1 tab PO Q6H PRN [History] Doxycycline 100 mg PO BID #10 capsule 10/15/16 [Rx] Allergies/Adverse Reactions: Allergies codeine Allergy (Verified 10/14/16 11:48) Anaphylaxis metronidazole [From Flagyl] Allergy (Verified 10/14/16 11:48) Anaphylaxis morphine Allergy (Verified 10/14/16 14:18) Vomiting tramadol Allergy (Verified 09/14/16 07:40) Anaphylaxis ibuprofen Adverse Reaction (Verified 10/14/16 11:48) Gastrointestinal Upset Penicillins Adverse Reaction (Verified 10/14/16 11:48) Gastrointestinal Upset Procedures/tests Complete & Pending: Procedures Performed prior 72 hours Category Date Time Status ECG 12 lead ECG [ECG] AM 0600 Y 10/14/16 06:00 Ordered Date of admission: 10/14/16 04:14 Primary care physician: PCP NO Consults: 10/14/16 05:07 Consult to Nurse Navigator [CONS] Routine Comment: 10/14/16 05:11 Consult to Physician [CONS] Routine Consulting Provider: Larry Nova Reason for Consult: pneumonia; s/p RLL lobectomy Call Completed: No Discharging clinician: Neeta Soler Anticipated date of discharge: 10/15/16 - Patient Status Disposition: Home, Self-Care Condition: Good Functional capacity at discharge: independent ambulation Overall status at discharge: patient is back to baseline - Discharge Instructions Instructions: Doxycycline (By mouth), Pneumonia (DC) Follow Up With: Kinza Love CNP [Advanced Practice Nurse] - 10/19/16 10:45 am NO,PCP [Primary Care Provider] - Larry Nova MD [Partnered Physician] - 11/22/16 1:00 pm Additional Instructions: F/up with PCP in 1-2 weeks - Diet and Activity Activity: resume usual activities as tolerated Diet: advance to your usual diet, regular diet Hospital course: Ms. Tim is a 46 year old female with the above medical problems, initially admitted with cough and some shortness of breath. She was admitted with presumed right lower lobe pneumonia. CT angiogram of chest was done which showed no evidence of pulmonary embolism and postoperative changes and right middle and upper lobe scarring/atelectasis. She was started on broad-spectrum antibiotics-IV vancomycin and Levaquin. She was noted to have very mild leukocytosis initially, which improved by the next day. The patient had no fever and remained hemodynamically stable. One out of 2 initial blood cultures grew gram-positive cocci, which is likely a contaminant from skin bacteria. She remained asymptomatic since admission and never required supplemental oxygen. Cardiothoracic surgery consult appreciated , recommend no further intervention. Patient is medically stable for discharge on oral antibiotics. Patient likely had an episode of acute bronchitis, viral or bacterial. Cannot confirm the diagnosis of pneumonia. - Time Spent with Patient Total time spent providing and/or coordinating discharge services: Greater than 30 minutes (45 min) - Constitutional Vitals: Temp Pulse Resp BP Pulse Ox 97.1 F L 86 16 135/69 97 10/15/16 07:35 10/15/16 07:35 10/15/16 07:35 10/15/16 08:31 10/15/16 07:35 General appearance: Present: cooperative, A&O X 3, answers questions appropriately - Respiratory Respiratory exam: Present: CTAB. Absent: accessory muscle use, rales, rhonchi, wheezes - Cardiovascular Cardiovascular exam: Present: RRR, +S1, +S2. Absent: diastolic murmur, gallop, rubs, systolic murmur
[2016-10-15] MEDS ORDERED: Aminoglycoside Consult 1 EACH MC ONE (11:25)
== END 2016-10-15 11:26 | disposition home or self-care (01) ==
LOC: 2NNU
PROVIDERS: ADMIT Pediatrics; ATTEND Internal Medicine

== ENCOUNTER 2016-12-24 09:50 | Inpatient (IN) ==
--- NOTE | 2016-12-23 20:52 | Discharge Summary ---
<Daxa Ramos - Last Filed: 12/23/16 20:49> Date of Encounter: 12/23/16 - Discharge Diagnosis (1) Arthritis of knee, left Priority: Primary Status: Acute (2) Chronic pain Status: Acute - Discharge Medications Home Medications: Docusate [Colace] 100 mg PO BID #60 capsule 12/17/16 [Rx] Omeprazole [PriLOSEC] 20 mg PO DAILY #30 capsule. 12/17/16 [Rx] Albuterol Sulfate [Albuterol Inhaler] 1 - 2 puff IH Q6H PRN #1 inhaler 12/21/16 [Rx] Ondansetron HCl [Zofran] 4 mg PO Q6H PRN #20 tablet 12/21/16 [Rx] Aspirin Enteric Coated [Aspirin EC] 325 mg PO DAILY #21 tablet. 12/23/16 [Rx] OxyCODONE Immed Rel [Roxicodone 5 MG] 5 - 10 mg PO Q6HR PRN #40 tablet 12/23/16 [Rx] Allergies/Adverse Reactions: Allergies codeine Allergy (Verified 12/24/16 10:09) Anaphylaxis metronidazole [From Flagyl] Allergy (Verified 12/24/16 10:09) Anaphylaxis morphine Allergy (Verified 12/24/16 10:29) Swelling of Lip/Tongue/Throat Penicillins Allergy (Verified 12/24/16 10:29) Swelling of Lip/Tongue/Throat tramadol Allergy (Verified 12/24/16 10:09) Anaphylaxis ibuprofen Adverse Reaction (Verified 12/24/16 10:09) Gastrointestinal Upset Primary care physician: PCP NO - Patient Status Disposition: Home, Self-Care Condition: Good - Discharge Instructions Follow Up With: NO,PCP [Primary Care Provider] - - Hospital Course Hospital course: Ms. Tim is a 46 year old female - Time Spent with Patient Total time spent providing and/or coordinating discharge services: <Harvey Yeung - Last Filed: 12/25/16 06:40> Date of Encounter: 12/25/16 Time of Encounter: 06:39 - Discharge Diagnosis (1) Morbid obesity with BMI of 50.0-59.9, adult Priority: Secondary Status: Chronic (2) Uterine cancer Priority: Secondary Status: Chronic Qualifiers: Malignant neoplasm of uterus location: unspecified site of uterus Qualified Code(s): C55 - Malignant neoplasm of uterus, part unspecified (3) Arthritis of knee, left Priority: Primary Status: Acute (4) Chronic pain Priority: Secondary Status: Chronic Qualifiers: Chronic pain type: other chronic pain Qualified Code(s): G89.29 - Other chronic pain Primary care physician: PCP NO - Patient Status Functional capacity at discharge: uses cane/walker Overall status at discharge: patient is progressing back to baseline - Hospital Course Hospital course: Ms. Tim is a 46 year old female The patient had an uneventful postoperative course. They received antibiotics and physical therapy and were discharged in stable condition. There will follow -up in the office in 2 weeks. Aspirin DVT prophylaxis - Time Spent with Patient Total time spent providing and/or coordinating discharge services:
[2016-12-24] MEDS ORDERED: Lidocaine -MPF 1% 2 ML VIAL ID ONE (10:05)
[2016-12-24] MEDS ORDERED: Albuterol 2.5 MG/3 ML NEBULIZER IH ONE ×2 (10:05→11:07)
[2016-12-24] MEDS ORDERED: Ringers Solution, Lactated 1,000 ML IVC SCH ×2 (10:15→14:19)
[2016-12-24] MEDS ORDERED: CeFAZolin Pre 3,000 MG/100 ML 3,000 MG/100 ML BAG IVPB ONE (10:26)
--- NOTE | 2016-12-24 10:46 | History & Physical Report ---
Date of Encounter: 12/24/16 Time of Encounter: 10:45 24 Hour HP Update - Instructions Instructions: If the History and Physical is less than 30 days old and was completed prior to A.M. admission and or procedure and has NOT been updated on calendar day of procedure please complete this update prior to performing procedure. - Update Patient reports changes in Medical Condition: No Changes in examination, assessment, or condition: No Changes in Medication: No Preop tests/diagnostics Reviewed: Yes Surgery Remains Indicated: Yes Consent for Planned Operative Procedure(s) Verified: Yes - Pre-Operative Checklist Preoperative Checklist Indicated: No Prophylactic Antibiotic Ordered: Yes Is VTE Prophylaxis Indicated?: Yes
--- NOTE | 2016-12-24 11:02 | Anesthesia Evaluation PreOp ---
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 12/17/16 [Rx] Albuterol Sulfate [Albuterol Inhaler] 1 - 2 puff IH Q6H PRN #1 inhaler 12/21/16 [Rx] Ondansetron HCl [Zofran] 4 mg PO Q6H PRN #20 tablet 12/21/16 [Rx] Aspirin Enteric Coated [Aspirin EC] 325 mg PO DAILY #21 tablet. 12/23/16 [Rx] OxyCODONE Immed Rel [Roxicodone 5 MG] 5 - 10 mg PO Q6HR PRN #40 tablet 12/23/16 [Rx] Allergies acetaminophen [From Tylenol] Allergy (Verified 12/24/16 10:09) Swelling of Lip/Tongue/Throat codeine Allergy (Verified 12/24/16 10:09) Anaphylaxis metronidazole [From Flagyl] Allergy (Verified 12/24/16 10:09) Anaphylaxis morphine Allergy (Verified 12/24/16 10:29) Swelling of Lip/Tongue/Throat Penicillins Allergy (Verified 12/24/16 10:29) Swelling of Lip/Tongue/Throat tramadol Allergy (Verified 12/24/16 10:09) Anaphylaxis ibuprofen Adverse Reaction (Verified 12/24/16 10:09) Gastrointestinal Upset - Meds/Allergy Pre-op Review Medications Reviewed: Yes Allergies Reviewed: Yes Beta Blockers on Current Med List: No Anesthesia Results - Labs Laboratory Tests 12/11/16 12/11/16 12/11/16 10:58 10:58 11:02 WBC 7.1 Hgb 13.6 Hct 42.4 Plt Count 179 PT 12.1 INR 1.1 APTT 31.5 Sodium 139 Potassium 3.8 BUN Creatinine 0.81 12/11/16 11:02 WBC Hgb Hct Plt Count PT INR APTT Sodium Potassium BUN 10 Creatinine - Imaging EKG: report reviewed (10/13/2016 ST, 1st degree AV block) Anesthesia Exam O2 Sat Height 1.63 m Height 1.63 m Height 1.63 m Weight 137.438 kg Weight 137.438 kg Weight 137.438 kg O2 Sat by Pulse Oximetry 98 O2 Sat by Pulse Oximetry 98 O2 Sat by Pulse Oximetry 98 Vital Signs Temp Pulse Resp BP Pulse Ox 97.8 F 82 18 146/94 98 12/24/16 10:03 12/24/16 10:03 12/24/16 10:03 12/24/16 10:03 12/24/16 10:03 Height: 5'4'' Weight: 303 lbs NPO (# of Hours): 8 Pain Scale: 10 Pain Scale Used: Numeric (1 - 10) - HEENT Pupil (Motor): EOMI Mallampati: IV Teeth: Normal (broken upper front tooth) Oral Opening: Greater than 3 - LONG CHAIN QUILLER TENDER LOC: Oriented [employer] CHAIN QUILLER TENDER Motor: Normal RUE, Normal LUE, Normal RLE, Normal LLE, Normal Face [employer] CHAIN QUILLER TENDER Sensory: Normal: RUE, LUE, RLE, LLE, Face - Cardiac Rhythm: Regular Murmur: None - Pulmonary Breath Sounds: bilateral Clear Respiratory Effort: Symmetrical Anesthesia Assess/Plan ASA Score: 3 Modified [place] Scale for Level of Consciousness: Cooperative, oriented, and tranquil Anesthetic Plan: General Monitoring Plan: Standard Monitors Recovery Plan: PACU
[2016-12-24] MEDS ORDERED: *HR* Labetalol 100 MG/20 ML MDV IVP PRN (11:07)
[2016-12-24] MEDS ORDERED: *HR* Promethazine 25 MG/ML VIAL IVP PRN (11:07)
[2016-12-24] MEDS ORDERED: *HR* HYDROmorphone (PF) 1 MG/ML SYRINGE IVP PRN (11:07)
[2016-12-24] MEDS ORDERED: Tetracaine/PF 20 MG/2 ML AMPUL SPINA ONE (11:11)
[2016-12-24] MEDS ORDERED: Bupivacaine/Clonidine Syringe 1 EACH SYRINGE ONE (11:12)
[2016-12-24] MEDS ORDERED: Lidocaine -MPF 4% 5 ML AMPUL ONE (11:21)
[2016-12-24] MEDS ORDERED: *HR* Midazolam HCl 2 MG/2 ML VIAL ONE (11:21)
[2016-12-24] MEDS ORDERED: *HR* Propofol 200 MG/20 ML VIAL IVP ONE (11:21)
[2016-12-24] MEDS ORDERED: *HR* Rocuronium Bromide 50 MG/5 ML VIAL ONE (11:21)
[2016-12-24] MEDS ORDERED: *HR* Succinylcholine 200 MG/10 ML VIAL IVP ONE (11:21)
[2016-12-24] MEDS ORDERED: Ondansetron 4 MG/2 ML VIAL ONE (11:21)
[2016-12-24] MEDS ORDERED: Lidocaine -MPF 2% 2 ML VIAL ONE (11:21)
[2016-12-24] MEDS ORDERED: *HR* FentaNYL (PF) 100 MCG/2 ML VIAL ONE (11:21)
[2016-12-24] MEDS ORDERED: Dexamethasone 4 MG/ML VIAL ONE ×2 (11:21)
[2016-12-24] MEDS ORDERED: Ketorolac 30 MG/ML VIAL ONE (11:22)
[2016-12-24] MEDS ORDERED: *HR* HYDROmorphone 2 MG/ML SYRINGE ONE (12:33)
--- NOTE | 2016-12-24 13:08 | Orthopedic Operative Note ---
Date of procedure: 12/24/16 Pre-op diagnosis: Left knee arthritis Post-op diagnosis: same (Significant synovitis) Procedure: Procedure: Left Total knee replacement Estimated blood loss: 1000 cc Hardware: Arthrex Femur: 6 Tibia: 5 PS insert: 12 Patella: 34 Exam Under anesthesia: Full flexion full extension no instability Procedural Notes: Grade 4 changes medial compartment patellofemoral joint, significant synovitis. Operative procedure: The patient was brought to the operating room and placed on the operating room table. After general anesthesia was administered the operative knee was examined. Findings were noted in the exam under anesthesia. The operative extremity was prepped and draped in sterile surgical fashion. The patient received IV antibiotics prior to skin incision. A standard midline incision was made centered over the patella. The incision was made through the skin and subcutaneous tissue. A medial parapatellar tendon approach was performed. Care was taken to preserve tissue along the medial aspect of the patella. And to protect the patella tendon. The deep MCL was released off the medial tibia. The infra patella fat pad was excised. Knee was brought into flexion. Patient noted to have grade 4 changes medial compartment patellofemoral joint, significant synovitis. A synovial specimen was sent as well as cultures. The entry hole was made for the intramedullary femoral guide. The guide was seated in 6 degrees of valgus. Anterior cut was made followed by the distal cut. The ACL the PCL the medial and the lateral menisci were excised. The tibia was subluxed forward. The entry hole was made for the intramedullary tibial guide. Guide was seated to resect 2 mm off the more abnormal side. The knee was brought into flexion the distal femur was sized 6. The femoral guide was seated , the anterior cut was made followed by the posterior condylar cut, followed by the chamfer cuts. The finishing guide was seated the box cut was made and the lug holes were drilled. The tibia was sized 5, the tibial tray was seated and prepared with the large drill followed by the fin cutter. Trial reduction revealed full extension no varus valgus instability with the appropriate 12 PS Dalia. The patella was everted and cut was made at the level of the insertion of the quadriceps and patella tendon. The patella was sized 34 the guide was seated and the lug holes are drilled. Trial reduction revealed excellent patella tracking. All trial components were removed all bony surfaces were irrigated. The tibia was cemented first followed by the femur. 12 PS Dalia was seated and the knee was brought into full extension. The patella was cemented and held in place with the patellar holding clamp. After the cement had hardened, the knee sat for 2 minutes with a Betadine saline solution. The knee was then irrigated out with 2 L of pulse irrigation. The extensor mechanism was closed with #2 FiberWire suture and #2 PDS suture. The subcutaneous tissue was then irrigated and closed deep with #1 PDS suture superficially with 0 PDS suture and skin was closed with skin ksenia. The patient was then placed in a sterile dressing and a postoperative brace extubated and transferred to recovery room in stable condition. Anesthesia: DUNIA Surgeon: Harvey Yeung Wire Drawing Machine Operator: Daxa Ramos Condition: stable Disposition: PACU
[2016-12-24 14:01] LABS: Hemoglobin 12.8 g/dL (11.5-15.4)
--- NOTE | 2016-12-24 14:17 | Anesthesia Evaluation Post Op ---
Date of Encounter: 12/24/16 Time of Encounter: 14:15 - Vital Signs Vital Signs: Vital Signs Temperature 97.8 F 12/24/16 10:03 Pulse Rate 82 12/24/16 10:03 Respiratory Rate 18 12/24/16 10:03 Blood Pressure 146/94 12/24/16 10:03 O2 Sat by Pulse Oximetry 98 12/24/16 10:03 Temperature 97.7 F 12/24/16 14:10 Pulse Rate 97 12/24/16 14:10 Respiratory Rate 13 12/24/16 14:10 Blood Pressure 141/97 12/24/16 14:10 O2 Sat by Pulse Oximetry 94 12/24/16 14:10 - Lungs Lungs: Clear Ascult./Percussion - Airway Airway: Non-obstructed - Cardiovascular Regular Rate - Mental Status Mental Status: Alert & Oriented, Answers Appropriately - Pain Pain Scale: 4 Pain Scale used: Numeric (1 - 10) - Nausea Vomiting Nausea Vomiting: Not Present - Hydration Hydration: Ice chips, Has not voided - Discharge PostOp Status: Transfer Patient to floor
[2016-12-24] MEDS ORDERED: Naloxone 0.4 MG/ML INJ IVP PRN (14:19)
[2016-12-24] MEDS ORDERED: Ondansetron 4 MG/2 ML VIAL IVP PRN (14:19)
[2016-12-24] MEDS ORDERED: Temazepam 15 MG CAPSULE PO PRN (14:19)
[2016-12-24] MEDS ORDERED: *HR* OxyCODONE Immed Rel 5 MG TABLET PO PRN (14:19)
[2016-12-24] MEDS ORDERED: Sennosides 8.6 MG TABLET PO PRN (14:19)
[2016-12-24] MEDS ORDERED: MOM Conc 10 ML UD.LIQ PO PRN (14:19)
[2016-12-24] MEDS: *HR* OxyCODONE Immed Rel 5 MG TABLET PO PRN ×2 (15:01→20:47)
[2016-12-24] MEDS: Clindamycin 900 MG/50 ML 900 MG/50 ML IV.SOLN IVPB SCH (16:03)
[2016-12-24] MEDS: *HR* HYDROmorphone (PF) 1 MG/ML SYRINGE IVP PRN ×3 (16:03→21:47)
[2016-12-24] MEDS ORDERED: *HR* Enoxaparin 30 MG/0.3 ML SYRINGE SQ SCH (18:00)
[2016-12-24] MEDS: *HR* Enoxaparin 30 MG/0.3 ML SYRINGE SQ SCH (19:08)
[2016-12-25] MEDS: Clindamycin 900 MG/50 ML 900 MG/50 ML IV.SOLN IVPB SCH (00:24)
[2016-12-25] MEDS: *HR* OxyCODONE Immed Rel 5 MG TABLET PO PRN ×2 (00:48→06:20)
[2016-12-25] MEDS: *HR* HYDROmorphone (PF) 1 MG/ML SYRINGE IVP PRN ×3 (02:14→08:19)
[2016-12-25 05:11] LABS: Hematocrit 33.3 % (35.3-44.9)
[2016-12-25] MEDS: *HR* Enoxaparin 30 MG/0.3 ML SYRINGE SQ SCH (05:21)
[2016-12-25 05:28] LABS: Hemoglobin 10.5 g/dL (11.5-15.4)
[2016-12-25 05:38] LABS: BUN/Creatinine Ratio 16 (6-26); Blood Urea Nitrogen 17 mg/dL (7-20); Calcium 8.8 mg/dL (8.6-10.8); Carbon Dioxide 25 mEq/L (19-29); Chloride 99 mEq/L (98-109); Glucose 126 mg/dL (70-99); Osmolality,Calculated 277 (280-300); Sodium 132 mEq/L (136-145); eGFR For African Americans > 60 (> 60); eGFR For Non-African Americans 56 (> 60)
--- NOTE | 2016-12-25 06:40 | Orthopedics Progress Note ---
Date of Encounter: 12/25/16 Time of Encounter: 06:40 - Assessment and Plan (1) Morbid obesity with BMI of 50.0-59.9, adult Current Visit: Yes Status: Chronic (2) Uterine cancer Current Visit: No Status: Chronic Qualifiers: Malignant neoplasm of uterus location: unspecified site of uterus Qualified Code(s): C55 - Malignant neoplasm of uterus, part unspecified (3) Arthritis of knee, left Current Visit: Yes Status: Acute (4) Chronic pain Current Visit: Yes Status: Chronic Qualifiers: Chronic pain type: other chronic pain Qualified Code(s): G89.29 - Other chronic pain Subjective Interval history: Patient was seen this morning doing well without complaints. Afebrile vital signs stable. Operative extremity: Neurovascularly intact Dressing clean dry and intact Calves nontender Assessment and plan: Continue with postoperative care Hematocrit 33 discharge today Objective Vital signs: Vital Signs Temp Pulse Resp BP Pulse Ox 12/25/16 03:48 97.7 F 90 18 130/85 98 12/24/16 23:58 97.3 F L 104 17 112/80 97 12/24/16 19:36 97.7 F 101 17 123/87 98 12/24/16 16:12 97.5 F L 101 20 127/75 98 12/24/16 15:32 97.7 F 91 16 127/87 98 12/24/16 15:15 97.7 F 102 20 129/84 94 12/24/16 14:44 93 12/24/16 14:34 97.7 F 96 12 131/78 90 12/24/16 14:10 97.7 F 97 13 141/97 94 12/24/16 14:00 94 12 145/85 94 12/24/16 13:50 100 14 143/94 93 12/24/16 13:40 97.0 F L 108 14 141/83 96 12/24/16 10:29 97.8 F 82 18 146/94 98 12/24/16 10:03 97.8 F 82 18 146/94 98 Intake and Output 12/24/16 12/24/16 12/25/16 15:59 23:59 07:59 Intake Total 1050 / 1050 1700 / 1700 Output Total 100 / 100 300 / 300 500 / 500 Balance -100 / -100 750 / 750 1200 / 1200 Intake: IV Fluids 50 / 50 1000 / 1000 Lactated Ringers 1,000 ML 1000 / 1000 @ 75 mls/hr IVC .[id number] VANDANA Rx#:[id number] Cleocin 900 MG/50 ML 900 50 / 50 mg In 50 ml @ 50 mls/hr IVPB Q8HR VANDANA Rx#: [id number] Oral 1000 / 1000 700 / 700 Output: Urine 300 / 300 500 / 500 Estimated Blood Loss 100 / 100 Other: Weight 137.438 kg - Labs CBC & BMP: 12/25/16 04:08 12/25/16 04:08 Labs: Abnormal lab results Hgb 10.5 g/dL (11.5-15.4) L D 12/25/16 04:08 Hct 33.3 % (35.3-44.9) L 12/25/16 04:08 Sodium 132 mEq/L (136-145) L 12/25/16 04:08 Potassium 5.0 mEq/L (3.5-4.5) H 12/25/16 04:08 Est GFR (Non-Af Amer) 56 (> 60) L 12/25/16 04:08 Glucose 126 mg/dL (70-99) H 12/25/16 04:08 Calculated Osmolality 277 (280-300) L 12/25/16 04:08 - VTE Documentation of Mechanical Device: Venous foot pump, device Consult Discharge Plan - Plan Referrals: NO,PCP [Primary Care Provider] -
[2016-12-25 11:07] VITALS: BP 139/82
== END 2016-12-25 11:58 | disposition home or self-care (01) | DRG 302 ==
LOC: SAMDAY 09:50 → 3NENU 14:26
PROVIDERS: ADMIT Orthopaedic Surgery; ATTEND Orthopaedic Surgery